=== PATIENT | female | born 1980 | race Caucasian/White ===

== ENCOUNTER 2017-04-05 14:52 | Emergency (ER) | payer OTHER ==
--- NOTE | 2017-04-05 15:05 | PDOC ---
Rapid Medical Evaluation Time Seen by Provider: 04/05/17 14:56 Medical Evaluation: I have performed a brief in-person evaluation of this patient. The patient presents with a chief complaint of: vaginal bleeding 6 weeks with some abd cramping and dysuria x 3 days. LMP 02/02/17. no passage of clots. . Pertinent physical exam findings: none I have ordered the following: UA/culture The patient will proceed to the ED for further evaluation.
[2017-04-05 15:07] VITALS: BP 123/75; PULSE 70; TEMP 98.5; BMI 24.4
[2017-04-05 15:28] LABS: URINE APPEARANCE CLEAR; URINE BILIRUBIN NEGATIVE (NEGATIVE); URINE COLOR STRAW; URINE GLUCOSE (UA) NEGATIVE (NEGATIVE); URINE KETONE NEGATIVE (NEGATIVE); URINE NITRITE NEGATIVE (NEGATIVE); URINE PROTEIN NEGATIVE (NEGATIVE); URINE UROBILINOGEN NEGATIVE E.U./dl (0.2-1.0)
[2017-04-05 15:43] LABS: URINE BLOOD 2+ (NEGATIVE); URINE LEUK ESTERASE TRACE (NEGATIVE)
[2017-04-05 15:52] LABS: URINE RBC 1 /hpf (0-3); URINE WBC 4 /hpf (3-5)
[2017-04-05 16:36] LABS: BASOPHIL 0.4 % (0-2.0); EOSINOPHIL 1.7 % (0-4.5); MCH 29.6 pg (25.7-33.7); MCHC 33.5 g/dl (32.0-36.0); MEAN CELL VOLUME 88.3 fl (80-96); MEAN PLT VOLUME 9.1 fl (7.5-11.1); NEUTROPHILS 59.3 % (42.8-82.8); PLATELET COUNT 252 K/MM3 (134-434); RDW 12.7 % (11.6-15.6); WHITE BLOOD COUNT 8.6 K/mm3 (4.0-10.0)
--- NOTE | 2017-04-05 16:49 | PDOC ---
History of Present Illness - General Chief Complaint: Vaginal Bleeding Stated Complaint: VAGINAL BLEEDING, 6 WKS Time Seen by Provider: 04/05/17 14:56 History Source: Patient Exam Limitations: No Limitations - History of Present Illness Travel History: No Initial Comments: 04/05/17 16:03 37-year-old female presents to the ED with complaints of vaginal bleeding since this morning associated with lower abdominal pain since the onset of . Patient states that she was 2 weeks ago while she was in [facility] vacation visiting her significant other. Patient states had an ultrasound that showed no IUP but states it was probably too early to come back in 2 weeks. Since patient was returning back to [place] she decided to follow-up at [address] [place] [address] repeat a urine which was positive and has her follow-up appointment tomorrow. Patient states this is her first and bleeding has subsided to scant brownish discharge. Patient does complain of mild mid suprapubic cramping without nausea, vomiting, dysuria, back pain, fever or chills. Timing/Duration: reports: changing over time Quality: reports: mild, cramping Abdominal Pain Onset Location: reports: suprapubic Pain Radiation: reports: no radiation Activities at Onset: reports: none Aggravating Factors: improves with: None Alleviating Factors: improves with: None Past History - Travel Traveled outside of the country in the last 30 days: No Close contact w/someone who was outside of country & ill: No - Past Medical History Allergies/Adverse Reactions: Allergies Allergy/AdvReac Type Severity Reaction Status Date / Time No Known Allergies Allergy Verified 04/05/17 15:02 Home Medications: Ambulatory Orders Loratadine 10 mg PO DAILY 04/05/17 Other medical history: dENIES - Immunization History Immunization Up to Date: Yes - Psycho/Social/Smoking Cessation Hx Suicidal Ideation: No Smoking History: Never smoked Information on smoking cessation initiated: No Hx Alcohol Use: No Drug/Substance Use Hx: No Patient Lives Alone: No Review of Systems - Review of Systems Able to Perform ROS?: Yes Constitutional: No: Symptoms Reported HEENTM: No: Symptoms Reported Respiratory: No: Symptoms reported Cardiac (ROS): No: Symptoms Reported ABD/GI: Yes: Abdominal cramping : Yes: Discharge (vaginal) Musculoskeletal: No: Symptoms Reported Integumentary: No: Symptoms Reported Endocrine: No: Symptoms Reported Hematologic/Lymphatic: No: Symptoms Reported *Physical Exam - Vital Signs Last Vital Signs Temp Pulse Resp BP Pulse Ox 98.5 F 70 15 123/75 100 04/05/17 15:03 04/05/17 15:03 04/05/17 15:03 04/05/17 15:03 04/05/17 15:03 - Physical Exam General Appearance: Yes: Nourished, Appropriately Dressed. No: Apparent Distress HEENT: negative: Pale Conjunctivae Neck: positive: Normal Thyroid, Supple Respiratory/Chest: positive: Lungs Clear, Normal Breath Sounds. negative: Respiratory Distress Cardiovascular: positive: Regular Rhythm, Regular Rate. negative: Murmur Female Pelvic Exam: positive: cervical os closed, vaginal bleeding (scant brownish josé). negative: CMT, adnexal tenderness Gastrointestinal/Abdominal: positive: Soft, Tenderness (mid suprapubic) Musculoskeletal: negative: CVA Tenderness Extremity: negative: Normal Capillary Refill Integumentary: positive: Normal Color, Warm, Moist Neurologic: positive: Normal Mood/Affect, Motor Strength 03/04 ED Treatment Course - LABORATORY CBC & Chemistry Diagram: 04/05/17 16:30 04/05/17 16:30 - ADDITIONAL ORDERS Additional order review: Laboratory Results 04/05/17 15:05 Urine Color Straw Urine Appearance Clear Urine pH 7.0 Urine Protein Negative Urine Glucose (UA) Negative Urine Ketones Negative Urine Blood 2+ H Urine Nitrite Negative Urine Bilirubin Negative Urine Urobilinogen Negative Ur Leukocyte Esterase Trace H - RADIOLOGY Radiology Studies Ordered: Category Date Time Status TRANSVAGINAL US PREG [US] Stat Ultrasound 04/05/17 16:15 Ordered Medical Decision Making - Medical Decision Making 04/05/17 15:56 Patient currently 6 weeks presenting with vaginal bleeding since this morning. Patient states had an ultrasound done 2 weeks ago and L5 but with no IUP but likely too early based on her LMP. 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 Patient on exam had mild suprapubic tenderness along with brownish vaginal discharge. Patient ordered for the urine, beta Quant, CBC, comp and ultrasound. 04/05/17 17:46 Laboratory Tests 04/05/17 04/05/17 04/05/17 15:05 16:30 16:30 WBC 8.6 Hgb 13.7 Hct 40.8 Neutrophils % 59.3 Sodium 139 Potassium 4.2 Chloride 104 Carbon Dioxide 25 Anion Gap 10 BUN 9 Creatinine 0.5 L Random Glucose 90 AST 20 ALT 29 Beta HCG, Quant 6760.8 Urine Blood 2+ H Ur Leukocyte Esterase Trace H Urine WBC 4 Urine culture was sent. *DC/Admit/Observation/Transfer Diagnosis at time of Disposition: demise - Discharge Dispostion Disposition: HOME Condition at time of disposition: Stable - Referrals Referrals: Kirk Ricardo MD [Staff Physician] - - Patient Instructions Printed Discharge Instructions: DI for Threatened
[2017-04-05 17:02] LABS: ALBUMIN 3.8 g/dl (3.4-5.0); ANION GAP 10 (8-16); BILIRUBIN,TOTAL 0.2 mg/dL (0.2-1.0); CALCIUM 9.3 mg/dL (8.5-10.1); CO2 25 mmol/L (21-32); COCKROFT - GAULT 165.2995; CREATININE 0.5 mg/dL (0.55-1.02); GLUCOSE,RANDOM 90 mg/dL (74-106); SGOT/AST 20 U/L (15-37); SGPT/ALT 29 U/L (12-78); TOT PROT 7.2 g/dl (6.4-8.2)
[2017-04-05 17:17] LABS: ALK PHOS 64 U/L (45-117)
--- NOTE | 2017-04-05 19:55 | PDOC ---
*Physical Exam - Vital Signs Last Vital Signs Temp Pulse Resp BP Pulse Ox 98.5 F 70 15 123/75 100 04/05/17 15:03 04/05/17 15:03 04/05/17 15:03 04/05/17 15:03 04/05/17 15:03 - Physical Exam Comments: 04/05/17 19:50 37-year-old female presents to the emergency department complaining of lower abdominal pain since earlier this morning with lower abdominal discomfort. No IUP was noted on an ultrasound she had done 2 weeks ago. She was informed to follow-up in 2 weeks due to possible early gestation. Patient denies nausea/ vomiting, fever/chills, urinary symptoms, back pains. ED Treatment Course - LABORATORY CBC & Chemistry Diagram: 04/05/17 16:30 04/05/17 16:30 - ADDITIONAL ORDERS Additional order review: Laboratory Results 04/05/17 04/05/17 16:30 15:05 Sodium 139 Potassium 4.2 Chloride 104 Carbon Dioxide 25 Anion Gap 10 BUN 9 Creatinine 0.5 L Creat Clearance w eGFR > 60 Random Glucose 90 Calcium 9.3 Total Bilirubin 0.2 AST 20 ALT 29 Alkaline Phosphatase 64 Total Protein 7.2 Albumin 3.8 Beta HCG, Quant 6760.8 Urine Color Straw Urine Appearance Clear Urine pH 7.0 Urine Protein Negative Urine Glucose (UA) Negative Urine Ketones Negative Urine Blood 2+ H Urine Nitrite Negative Urine Bilirubin Negative Urine Urobilinogen Negative Ur Leukocyte Esterase Trace H Urine RBC 1 Urine WBC 4 Ur Epithelial Cells Rare 04/05/17 16:30 RBC 4.62 MCV 88.3 MCHC 33.5 RDW 12.7 MPV 9.1 Neutrophils % 59.3 Lymphocytes % 31.1 Monocytes % 7.5 Eosinophils % 1.7 Basophils % 0.4 Progress Note - Progress Note Progress Note: Patient had a transvaginal ultrasound test done in the emergency department today. Preliminary ultrasound report shows a single intrauterine with estimated sonography gestational age of 6 weeks and 2 days based on the crown-rump length. No heart activity could be documented suggestive of demise. Correlation with serial quantitative serum beta hCG and follow-up ultrasound is recommended. *DC/Admit/Observation/Transfer Diagnosis at time of Disposition: - Discharge Dispostion Condition at time of disposition: Stable Admit: No - Referrals Referrals: Kirk Ricardo MD [Staff Physician] - - Patient Instructions Printed Discharge Instructions: DI for Threatened
== END 2017-04-05 21:58 | disposition home or self-care (01) ==
LOC: JER 14:52
DX: O02.1 Missed abortion (principal); Z3A.01 Less than 8 weeks gestation of pregnancy
CPT/HCPCS: 36415; 76817-TC; 80053; 81003; 81015; 84702; 85025; 86850; 86900; 86901; 99282-25

== ENCOUNTER 2019-08-12 03:46 | Inpatient (IN) | payer OTHER ==
[2019-08-12] MEDS ORDERED: ACETAMINOPHEN 1000 MG/100 ML VIAL (NON FORMULARY) IVPB ONE (05:29)
[2019-08-12] MEDS ORDERED: SODIUM CHLORIDE 1,000 ML IV STA (05:29)
[2019-08-12] MEDS ORDERED: ACETAMINOPHEN INJECTION 100 ML IVPB ONE (06:16)
--- NOTE | 2019-08-12 06:27 | PDOC ---
Attending Attestation - Resident Resident Name: Robb Covington - ED Attending Attestation I have performed the following: I have examined & evaluated the patient, The case was reviewed & discussed with the resident, I agree w/resident's findings & plan, Exceptions are as noted - HPI HPI: 08/12/19 06:24 39 F with no PMH presents to ED with 2 weeks of flank pain. Pt states that the pain began in her R flank. It was accompanied by dysuria and urinary frequency. Pt was diagnosed with a UTI and started on Macrobid, which she completed. Pt states the pain resolved initially but returned after a few days. Pt was subsequently started on Bactrim, which she has been taking for 2 days. Tonight, pt states that she began to develop L flank pain. Pt also endorses 2 episodes of vomiting. Denies any diarrhea. Had fevers last week but denies any recent F/ C. - Physicial Exam PE: 08/12/19 06:26 "GENERAL: Awake, alert, and fully oriented, in no acute distress. HEAD: No signs of trauma EYES: PERRLA, EOMI, sclera anicteric, conjunctiva clear ENT: Auricles normal inspection, hearing grossly normal, nares patent, oropharynx clear without exudates. Moist mucosa NECK: Nontender, no stepoffs, Normal ROM, supple, no lymphadenopathy, JVD, or masses LUNGS: Breath sounds equal, clear to auscultation bilaterally. No wheezes, and no crackles HEART: Regular rate and rhythm, normal S1 and S2, no murmurs, rubs or gallops ABDOMEN: + RLQ TTP, + L CVAT, normoactive bowel sounds. No guarding, no rebound. No masses EXTREMITIES: Normal range of motion, no edema. No clubbing or cyanosis. No cords, erythema, or tenderness NEUROLOGICAL: Cranial nerves II through XII intact. 5/5 strength and sensation in all extremities, Normal speech, normal gait, normal cerebellar function SKIN: Warm, Dry, normal turgor, no rashes or lesions noted. - Medical Decision Making 08/12/19 06:26 39 F with migrating flank pain x 2 weeks, with dysuria and frequency. Suspect pyelonephritis. Also consider nephrolithiasis. On exam, pt with L CVAT, as well as RLQ TTP. Will r/o appendicitis. - Labs, UA, UCx - CTAP - IVF, tylenol
[2019-08-12 06:31] LABS: BASO % 0.4 % (0-2.0); EOS % 0.3 % (0-4.5); HEMATOCRIT 40.5 % (32.4-45.2); HEMOGLOBIN 13.2 GM/dL (10.7-15.3); LYMPH % 9.5 % (8-40); MCH 29.4 pg (25.7-33.7); MCHC 32.7 g/dl (32.0-36.0); MEAN CELL VOLUME 89.8 fl (80-96); MEAN PLT VOLUME 10.4 fl (7.5-11.1); MONO % 4.4 % (3.8-10.2); NEUT % 85.4 % (42.8-82.8); PLATELET COUNT 244 K/MM3 (134-434); RBC 4.51 M/mm3 (3.60-5.2); RDW 12.7 % (11.6-15.6); WHITE BLOOD COUNT 14.9 K/mm3 (4.0-10.0)
[2019-08-12 07:00] LABS: BILIRUBIN,TOTAL 0.3 mg/dL (0.2-1); CALCIUM 9.5 mg/dL (8.5-10.1); CREATININE 0.7 mg/dL (0.55-1.3); POTASSIUM 4.5 mmol/L (3.5-5.1); TOT PROT 7.5 g/dl (6.4-8.2)
--- NOTE | 2019-08-12 07:21 | PDOC ---
*Physical Exam - Vital Signs Last Vital Signs Temp Pulse Resp BP Pulse Ox 98.3 F 84 18 125/78 99 08/12/19 04:43 08/12/19 04:43 08/12/19 04:43 08/12/19 04:43 08/12/19 04:43 - Physical Exam General Appearance: Yes: Nourished, Appropriately Dressed. No: Apparent Distress HEENT: positive: EOMI, OPAL, Pharynx Normal, Hearing Grossly Normal. negative: Scleral Icterus (R), Scleral Icterus (L) Neck: positive: Trachea midline, Normal Thyroid, Supple. negative: Lymphadenopathy (R), Lymphadenopathy (L) Respiratory/Chest: positive: Lungs Clear, Normal Breath Sounds. negative: Respiratory Distress, Accessory Muscle Use, Crackles, Rales, Rhonchi Cardiovascular: positive: Regular Rhythm, Regular Rate Vascular Pulses: Dorsalis-Pedis (R): 2+, Doralis-Pedis (L): 2+ Gastrointestinal/Abdominal: positive: Normal Bowel Sounds, Tender ( periumbilical tenderness), Flat, Soft. negative: Organomegaly, Pulsatile Mass, Guarding, Rebound Musculoskeletal: positive: Normal Inspection, CVA Tenderness (R>L). negative: Decreased Range of Motion Extremity: positive: Normal Capillary Refill, Normal Inspection, Normal Range of Motion. negative: Tender Integumentary: positive: Normal Color, Dry, Warm Neurologic: positive: Fully Oriented, Alert, Normal Mood/Affect, Normal Response ED Treatment Course - LABORATORY CBC & Chemistry Diagram: 08/12/19 05:56 08/12/19 05:56 - ADDITIONAL ORDERS Additional order review: Laboratory Results 08/12/19 08/12/19 05:56 05:56 Sodium 139 Potassium 4.5 Chloride 106 Carbon Dioxide 25 Anion Gap 7 L BUN 10.0 Creatinine 0.7 Est GFR (CKD-EPI)AfAm 128.28 Est GFR (CKD-EPI)NonAf 110.69 Random Glucose 114 H Calcium 9.5 Total Bilirubin 0.3 AST 18 ALT 23 Alkaline Phosphatase 84 Total Protein 7.5 Albumin 4.0 Lipase Cancelled 128 08/12/19 05:56 RBC 4.51 MCV 89.8 MCHC 32.7 RDW 12.7 MPV 10.4 D Neutrophils % 85.4 H D Lymphocytes % 9.5 D Monocytes % 4.4 Eosinophils % 0.3 D Basophils % 0.4 - Medications Given in the ED: ED Medications Discontinued Medications Generic Name Dose Route Start Last Admin Trade Name Heide PRN Reason Stop Dose Admin Acetaminophen 1,000 mg 08/12/19 05:29 08/12/19 06:22 Ofirmev Injection - IVPB 08/12/19 05:30 1,000 mg ONCE ONE Administration Sodium Chloride 1,000 mls @ 1,000 mls/hr 08/12/19 05:29 08/12/19 06:22 Normal Saline - IV 08/12/19 06:28 1,000 mls/hr ASDIR STA Administration Medical Decision Making - Medical Decision Making 08/12/19 07:20 Signed out to me by Dr. Covington. 39F presenting with L flank pain radiating to L groin, which began as R flank pain radiating to R groin Treated as UTI/w bleeding outpatient on Abx, but coming in with persistent pain and likely outpatient treatment failure for UTI Waiting read of CT abd/pelvis with contrast for evaluation of pyelo Labs notable for WBC 14.9. Pending UA results. 08/12/19 07:39 UA shows 2+ blood, 700 bacteria, +3 LE consistent with UTI/pyelo Pending beta hCG. 08/12/19 09:14 Upreg negative. 08/12/19 10:20 Patient evaluated at bedside, was having abdominal pain with urinary frequency and urgency and found to have UTI, started on outpatient Abx with outside PMD Leah Perdomo at [facility]. Has taken 1 week pyridine and 1 week Macrobid outpatient, still has persistent abdominal and flank pain Now with R-sided flank pain and nausea/vomiting with persistent UTI and WBC 15, afebrile and VS stable. Giving 1g ceftriaxone. CT scan pending read. Given presentation, patient requires admission for IV administration of antibiotic therapy for acute pyelonephritis, has failed outpatient management and is unable to tolerate PO medications. 08/12/19 10:45 CT reads no acute pathology, prominent cervix which may need follow-up Pap smear , possible posterior sacroilitis. Patient still requires inpatient admission for parenteral antibiotics. Called Dr. Welsh with hospitalist service but patient follows at [facility], admits to Dr. Juárez. Dr. Juárez paged overhead. 08/12/19 11:20 Discussed admission to Med-Surg with Dr. Juárez. Discharge - Discharge Information Problems reviewed: Yes Clinical Impression/Diagnosis: Acute pyelonephritis Condition: Stable - Admission Yes - Follow up/Referral - Patient Discharge Instructions - Post Discharge Activity
[2019-08-12 07:38] LABS: EPI CELLS 0.7 /HPF (0-5/HPF); HYALINE CASTS 4 /lpf (0-8); URINE APPEARANCE CLEAR; URINE BACTERIA 719.2 /hpf (NEGATIVE); URINE BILIRUBIN NEGATIVE (NEGATIVE); URINE COLOR YELLOW; URINE GLUCOSE (UA) NEGATIVE (NEGATIVE); URINE KETONE NEGATIVE (NEGATIVE); URINE LEUK ESTERASE 3+ (NEGATIVE); URINE NITRITE NEGATIVE (NEGATIVE); URINE PROTEIN TRACE (NEGATIVE); URINE RBC 2 /hpf (0-4); URINE UROBILINOGEN 0.2 mg/dL (0.2-1.0); URINE WBC 117 /hpf (0-5)
[2019-08-12] MEDS ORDERED: CEFTRIAXONE 1,000 MG in DEXTROSE 5%-WATER - 50 ML IVPB ONE (08:20)
[2019-08-12 08:29] LABS: HCG,QUALITATIVE URINE Negative
--- NOTE | 2019-08-12 10:23 | PDOC ---
*Physical Exam - Vital Signs Last Vital Signs Temp Pulse Resp BP Pulse Ox 98.3 F 84 18 125/78 99 08/12/19 04:43 08/12/19 04:43 08/12/19 04:43 08/12/19 04:43 08/12/19 04:43 - Physical Exam General Appearance: Yes: Nourished Neck: positive: Trachea midline Respiratory/Chest: positive: Lungs Clear, Normal Breath Sounds Cardiovascular: positive: Regular Rhythm, Regular Rate, S1, S2 Gastrointestinal/Abdominal: positive: Normal Bowel Sounds, Tender (suprapubic ttp. right CVA ttp. ), Flat, Soft Musculoskeletal: positive: Normal Inspection Extremity: positive: Normal Capillary Refill Integumentary: positive: Normal Color, Dry, Warm ED Treatment Course - LABORATORY CBC & Chemistry Diagram: 08/12/19 05:56 08/12/19 05:56 - ADDITIONAL ORDERS Additional order review: Laboratory Results 08/12/19 08/12/19 08/12/19 06:19 05:56 05:56 Sodium 139 Potassium 4.5 Chloride 106 Carbon Dioxide 25 Anion Gap 7 L BUN 10.0 Creatinine 0.7 Est GFR (CKD-EPI)AfAm 128.28 Est GFR (CKD-EPI)NonAf 110.69 Random Glucose 114 H Calcium 9.5 Total Bilirubin 0.3 AST 18 ALT 23 Alkaline Phosphatase 84 Total Protein 7.5 Albumin 4.0 Lipase Cancelled 128 Urine Color Yellow Urine Appearance Clear Urine pH 6.0 Ur Specific [place] 1.005 L Urine Protein Trace Urine Glucose (UA) Negative Urine Ketones Negative Urine Blood 2+ H Urine Nitrite Negative Urine Bilirubin Negative Urine Urobilinogen 0.2 Ur Leukocyte Esterase 3+ H Urine WBC (Auto) 117 Urine RBC (Auto) 2 Urine Casts (Auto) 4 U Epithel Cells (Auto) 0.7 Urine Bacteria (Auto) 719.2 Urine HCG, Qual Negative 08/12/19 05:56 RBC 4.51 MCV 89.8 MCHC 32.7 RDW 12.7 MPV 10.4 D Neutrophils % 85.4 H D Lymphocytes % 9.5 D Monocytes % 4.4 Eosinophils % 0.3 D Basophils % 0.4 - Medications Given in the ED: ED Medications Discontinued Medications Generic Name Dose Route Start Last Admin Trade Name Freq PRN Reason Stop Dose Admin Acetaminophen 1,000 mg 08/12/19 05:29 08/12/19 06:22 Ofirmev Injection - IVPB 08/12/19 05:30 1,000 mg ONCE ONE Administration Sodium Chloride 1,000 mls @ 1,000 mls/hr 08/12/19 05:29 08/12/19 06:22 Normal Saline - IV 08/12/19 06:28 1,000 mls/hr ASDIR STA Administration Medical Decision Making - Medical Decision Making 08/12/19 10:21 39-year-old female history of recent UTI was started on Macrobid 2 weeks ago which she completed 1 week ago. 2 days prior she started having recurrent symptoms of dysuria urgency and pain after urination she was having subjective fevers and chills she did see a doctor on Tuesday was given an antibiotic however on the evening prior patient started having worsening pain including left flank pain which is now migrated to the right side flank pain nausea and vomiting. Physical exam patient has suprapubic tenderness and right-sided CVA tenderness. Reviewed the patient's work-up thus far demonstrates a white count of 14 she was afebrile here however does have a persistent UTI was given Zofran for her vomiting. Due to the fact the patient has failed outpatient management of her UTI and is having vomiting she will be admitted for pyelonephritis her primary doctor is Dr. Perdomo at [facility]. Discharge - Discharge Information Problems reviewed: Yes Clinical Impression/Diagnosis: Acute pyelonephritis Condition: Stable - Follow up/Referral Referrals: ON STAFF,NOT [Primary Care Provider] - - Patient Discharge Instructions - Post Discharge Activity
[2019-08-12] MEDS ORDERED: CEFTRIAXONE 1 GM/50 ML BAG ONE (11:20)
--- NOTE | 2019-08-12 12:35 | HP ---
Admitting History and Physical - Primary Care Physician PCP: Malinda Juárez - Admission Chief Complaint: CVA TENDERNESS/PUBIC PAIN WITH DYSUREA History of Present Illness: 39-year-old female history of recent UTI was started on Macrobid 2 weeks ago which she completed 1 week ago. 2 days prior she started having recurrent symptoms of dysuria urgency and pain after urination she was having subjective fevers and chills she did see a doctor on Tuesday was given an antibiotic however on the evening prior patient started having worsening pain including left flank pain which is now migrated to the right side flank pain nausea and vomiting. Physical exam patient has suprapubic tenderness and right-sided CVA tenderness. History Source: Patient, Medical Record - Past Medical History Renal/: Yes: Other - Smoking History Smoking history: Never smoked - Alcohol/Substance Use Hx Alcohol Use: No Home Medications - Allergies Allergies/Adverse Reactions: Allergies Allergy/AdvReac Type Severity Reaction Status Date / Time No Known Allergies Allergy Verified 08/12/19 04:48 - Home Medications Home Medications: Ambulatory Orders Loratadine 10 mg PO DAILY 04/05/17 Review of Systems - Review of Systems Constitutional: reports: Fever, Lethargy, Night Sweats, Weakness Eyes: reports: No Symptoms HENT: reports: No Symptoms Neck: reports: No Symptoms Cardiovascular: reports: No Symptoms Respiratory: reports: No Symptoms Gastrointestinal: reports: Abdominal Pain Genitourinary: reports: Dysuria, Flank Pain Musculoskeletal: reports: Back Pain Neurological: reports: No Symptoms Endocrine: reports: No Symptoms Physical Examination Vital Signs: Vital Signs Temperature 98.3 F 08/12/19 04:43 Pulse Rate 84 08/12/19 04:43 Respiratory Rate 18 08/12/19 04:43 Blood Pressure 125/78 08/12/19 04:43 O2 Sat by Pulse Oximetry (%) 99 08/12/19 04:43 Constitutional: Yes: Mild Distress Cardiovascular: Yes: Regular Rate and Rhythm Respiratory: Yes: WNL Gastrointestinal: Yes: WNL Renal/: Yes: CVA Tenderness - Left, CVA Tenderness - Right Musculoskeletal: Yes: WNL Extremities: Yes: WNL Peripheral Pulses WNL: Yes Integumentary: Yes: WNL Wound/Incision: Yes: Clean/Dry Neurological: Yes: WNL Labs: CBC, BMP 08/12/19 05:56 08/12/19 05:56 Imaging - Results Cat Scan: Report Reviewed Problem List - Problems (1) Acute pyelonephritis Code(s): N10 - ACUTE PYELONEPHRITIS Assessment/Plan CHECK CULTURES ID CONSULT IV CEFTRIAXONE DVT PROPHYLAXIS FAILED ON OUTPATIENT PO ABX
[2019-08-12 18:16] VITALS: BMI 26.6
[2019-08-12] MEDS ORDERED: FLU VACCINE QUAD 60 MCG/0.5 ML (MDV 19-20) IM ONE (18:16)
[2019-08-12] MEDS: ACETAMINOPHEN 325 MG TABLET (FP) PO PRN (21:36)
[2019-08-12] MEDS: HEPARIN NA (PORCINE) 5,000 UNITS/ML 1ML VIAL SQ SCH (21:38)
[2019-08-13 08:31] LABS: HEMATOCRIT 36.4 % (32.4-45.2); HEMOGLOBIN 12.4 GM/dL (10.7-15.3); MCHC 33.9 g/dl (32.0-36.0); MEAN CELL VOLUME 88.5 fl (80-96); MEAN PLT VOLUME 9.9 fl (7.5-11.1); PLATELET COUNT 227 K/MM3 (134-434); RBC 4.11 M/mm3 (3.60-5.2); RDW 12.7 % (11.6-15.6)
[2019-08-13 08:54] LABS: ALBUMIN 3.4 g/dl (3.4-5.0); BILIRUBIN,TOTAL 0.4 mg/dL (0.2-1); BLOOD UREA NITROGEN 8.9 mg/dL (7-18); CREATININE 0.6 mg/dL (0.55-1.3); TOT PROT 6.5 g/dl (6.4-8.2)
[2019-08-13] MEDS ORDERED: PT OWN MED DRAWER 7, Y5N ONE (09:14)
[2019-08-13] MEDS: HEPARIN NA (PORCINE) 5,000 UNITS/ML 1ML VIAL SQ SCH ×2 (09:27→21:38)
[2019-08-13] MEDS: ACETAMINOPHEN 325 MG TABLET (FP) PO PRN ×3 (09:27→20:13)
[2019-08-13] MEDS ORDERED: CEFTRIAXONE 1 GM in DEXTROSE 5%-WATER - 50 ML IVPB SCH (10:00)
[2019-08-13] MEDS ORDERED: cefTRIAXone SODIUM 1 GM VIAL ONE (10:52)
[2019-08-13] MEDS ORDERED: DEXTROSE 5%-WATER - 50 ML IVPB ONE (10:52)
[2019-08-13] MEDS ORDERED: FLU VACCINE QUAD 60 MCG/0.5 ML (MDV 19-20) IM ONE (11:00)
--- NOTE | 2019-08-13 11:46 | PN ---
Progress Note, Physician Chief Complaint: Pyelonephritis UTI History of Present Illness: Previous notes and events reviewed awake and alert NAD complain of dysuria and hematuria no leukocytosis afebrile complain of R sided abdominal pain - Current Medication List Current Medications: Active Medications Acetaminophen (Tylenol -) 650 mg PO Q6H PRN PRN Reason: PAIN LEVEL 1-5 Last Admin: 08/13/19 09:27 Dose: 650 mg Heparin Sodium (Porcine) (Heparin -) 5,000 unit SQ BID APPLE Last Admin: 08/13/19 09:27 Dose: 5,000 unit Ceftriaxone Sodium 1 gm/ (Dextrose) 50 mls @ 100 mls/hr IVPB DAILY [facility]; Protocol Last Admin: 08/13/19 10:55 Dose: 100 mls/hr Influenza Virus Vaccine Quadrival (Flulaval Quad ) 60 mcg IM .ONCE ONE Stop: 08/13/19 11:01 - Objective Vital Signs: Vital Signs Temperature 97.9 F 08/13/19 06:00 Pulse Rate 69 08/13/19 06:00 Respiratory Rate 18 08/13/19 06:00 Blood Pressure 113/67 08/13/19 06:00 O2 Sat by Pulse Oximetry (%) 98 08/13/19 09:00 Constitutional: Yes: No Distress, Calm Eyes: Yes: Conjunctiva Clear HENT: Yes: Atraumatic Cardiovascular: Yes: Regular Rate and Rhythm Respiratory: Yes: Regular, CTA Bilaterally Gastrointestinal: Yes: Normal Bowel Sounds, Soft, Tenderness (R side) Musculoskeletal: Yes: WNL Extremities: Yes: WNL Edema: No Neurological: Yes: Alert, Oriented Psychiatric: Yes: Alert, Oriented Labs: CBC, BMP 08/13/19 07:36 08/13/19 07:36 Microbiology 08/12/19 06:19 Urine - Urine Clean Catch Urine Culture - Preliminary Lactose Fermenting Neg Bacilli Problem List - Problems (1) Acute pyelonephritis Assessment/Plan: -ID on board -Ceftriaxone -no leukocytosis -afebrile -UA shows 3+ leuks, 2+ blood -UC prelim positive -BC pending Code(s): N10 - ACUTE PYELONEPHRITIS Assessment/Plan see problem llist dvt ppx
--- NOTE | 2019-08-13 13:23 | PN ---
Progress Note (short form) - Note Progress Note: ID CONSULT DICTATED UTI R/O PYELO AWAIT C/S CONTINUE CEFTRIAXONE
--- NOTE | 2019-08-13 14:05 | CONS ---
DATE OF CONSULTATION: DATE OF DICTATION: 08/13/2019 INFECTIOUS DISEASE CONSULTATION HISTORY OF PRESENT ILLNESS: The patient is a 39-year-old female who is evaluated for urinary tract infection, possible pyelonephritis. She was admitted to the hospital on August 12, 2019, with flank pain. Patient states she has not been feeling well for the past 2 weeks. She first developed right flank pain with radiation to the groin associated with dysuria, frequency, and gross hematuria. She was seen as an outpatient and was prescribed Macrobid and later Bactrim. Despite the antibiotics, she had developed worsening flank pain, and she subsequently developed left flank pain with radiation to the groin. She also has reported associated nausea and vomiting and subjective fever. She was evaluated in the emergency room where she was noted to have an elevated white blood cell count of 14,000 and a urinalysis which showed pyuria. 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 A CAT scan of the abdomen and pelvis was performed, showed no acute pathology. No indirect evident of appendicitis was noted. Urine culture was obtained. She was empirically treated with ceftriaxone. Presently she reports improvement in her flank pain, dysuria and frequency. She denies any recurrent hematuria. PAST MEDICAL HISTORY: Negative. ALLERGIES: No known allergies. MEDICATION: Include Tylenol, ceftriaxone. SOCIAL HISTORY: She resides at home with her . She is nonsmoker, nondrinker. SYSTEMS REVIEW: Neurologic: No loss of consciousness, seizure activity, or focal weakness. Cardiac: Negative for chest pain or palpitations. Respiratory: Negative for cough or sputum production. Gastrointestinal: Negative vomiting or diarrhea. Genitourinary: As per HPI. 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 PHYSICAL EXAMINATION: General: On exam, she is awake and alert, supine in bed, she is in no acute distress. Vital signs: Temperature 97.9, blood pressure 113/67, pulse 69 regular, respirations 18 per minute. HEENT: Sclerae anicteric. Cardiovascular: Heart sounds S1, S2. Lungs: Clear. Abdomen: Soft. There is some mild right paraumbilical tenderness to palpation. No CVA tenderness. Extremities: Negative for edema. IMPRESSION: 1. Urinary tract infection. 2. Flank pain, rule out pyelonephritis. 3. Leukocytosis, rule out sepsis secondary to urinary tract focus. 4. Await culture results. Continue empiric ceftriaxone. Intravenous fluid hydration . Thank you for the kind referral. MARY BOYD M.D. [id number]
[2019-08-14 08:03] LABS: HEMATOCRIT 38.9 % (32.4-45.2); MCH 30.2 pg (25.7-33.7); MCHC 33.5 g/dl (32.0-36.0); MEAN CELL VOLUME 90.1 fl (80-96); MEAN PLT VOLUME 10.1 fl (7.5-11.1); PLATELET COUNT 239 K/MM3 (134-434); RBC 4.31 M/mm3 (3.60-5.2); RDW 12.9 % (11.6-15.6); WHITE BLOOD COUNT 6.7 K/mm3 (4.0-10.0)
[2019-08-14 08:23] LABS: ALBUMIN 3.6 g/dl (3.4-5.0); BILIRUBIN,TOTAL 0.3 mg/dL (0.2-1); BLOOD UREA NITROGEN 10.6 mg/dL (7-18); CREATININE 0.6 mg/dL (0.55-1.3)
[2019-08-14] MEDS ORDERED: DEXTROSE 5%-WATER 100 ML IVPB ONE (09:28)
[2019-08-14] MEDS: HEPARIN NA (PORCINE) 5,000 UNITS/ML 1ML VIAL SQ SCH (09:34)
[2019-08-14] MEDS: ACETAMINOPHEN 325 MG TABLET (FP) PO PRN ×2 (09:35→13:09)
[2019-08-14] MEDS ORDERED: CEFTRIAXONE 2 GM in DEXTROSE 5%-WATER 100 ML IVPB SCH (10:00)
[2019-08-14] MEDS ORDERED: IBUPROFEN 600 MG TABLET (FP) PO PRN (13:28)
[2019-08-14 13:55] VITALS: BP 112/66; PULSE 59; TEMP 98
--- NOTE | 2019-08-14 14:10 | DS ---
Physical Examination Vital Signs: Vital Signs Temperature 98.0 F 08/14/19 13:54 Pulse Rate 59 L 08/14/19 13:54 Respiratory Rate 18 08/14/19 05:38 Blood Pressure 112/66 08/14/19 13:54 O2 Sat by Pulse Oximetry (%) 98 08/13/19 21:00 Findings/Remarks: Laboratory Tests 08/12/19 08/12/19 08/12/19 05:56 05:56 05:56 WBC 14.9 H RBC 4.51 Hgb 13.2 Hct 40.5 MCV 89.8 MCH 29.4 MCHC 32.7 RDW 12.7 Plt Count 244 MPV 10.4 D Absolute Neuts (auto) 12.7 H Neutrophils % 85.4 H D Lymphocytes % 9.5 D Monocytes % 4.4 Eosinophils % 0.3 D Basophils % 0.4 Nucleated RBC % 0 Sodium 139 Potassium 4.5 Chloride 106 Carbon Dioxide 25 Anion Gap 7 L BUN 10.0 Creatinine 0.7 Est GFR (CKD-EPI)AfAm 128.28 Est GFR (CKD-EPI)NonAf 110.69 Random Glucose 114 H Calcium 9.5 Total Bilirubin 0.3 AST 18 ALT 23 Alkaline Phosphatase 84 Total Protein 7.5 Albumin 4.0 Lipase 128 Cancelled Urine Color Urine Appearance Urine pH Ur Specific Sparkman Urine Protein Urine Glucose (UA) Urine Ketones Urine Blood Urine Nitrite Urine Bilirubin Urine Urobilinogen Ur Leukocyte Esterase Urine WBC (Auto) Urine RBC (Auto) Urine Casts (Auto) U Epithel Cells (Auto) Urine Bacteria (Auto) Urine HCG, Qual 08/12/19 08/13/19 08/13/19 06:19 07:36 07:36 WBC 5.0 RBC 4.11 Hgb 12.4 Hct 36.4 MCV 88.5 MCH 30.0 MCHC 33.9 RDW 12.7 Plt Count 227 MPV 9.9 Absolute Neuts (auto) Neutrophils % Lymphocytes % Monocytes % Eosinophils % Basophils % Nucleated RBC % Sodium 139 Potassium 4.0 Chloride 109 H Carbon Dioxide 24 Anion Gap 6 L BUN 8.9 Creatinine 0.6 Est GFR (CKD-EPI)AfAm 134.96 Est GFR (CKD-EPI)NonAf 116.44 Random Glucose 104 Calcium 9.0 Total Bilirubin 0.4 AST 10 L ALT 18 Alkaline Phosphatase 71 Total Protein 6.5 Albumin 3.4 Lipase Urine Color Yellow Urine Appearance Clear Urine pH 6.0 Ur Specific Sparkman 1.005 L Urine Protein Trace Urine Glucose (UA) Negative Urine Ketones Negative Urine Blood 2+ H Urine Nitrite Negative Urine Bilirubin Negative Urine Urobilinogen 0.2 Ur Leukocyte Esterase 3+ H Urine WBC (Auto) 117 Urine RBC (Auto) 2 Urine Casts (Auto) 4 U Epithel Cells (Auto) 0.7 Urine Bacteria (Auto) 719.2 Urine HCG, Qual Negative 08/14/19 08/14/19 07:00 07:00 WBC 6.7 RBC 4.31 Hgb 13.0 Hct 38.9 MCV 90.1 MCH 30.2 MCHC 33.5 RDW 12.9 Plt Count 239 MPV 10.1 Absolute Neuts (auto) Neutrophils % Lymphocytes % Monocytes % Eosinophils % Basophils % Nucleated RBC % Sodium 139 Potassium 5.0 Chloride 107 Carbon Dioxide 29 Anion Gap 4 L BUN 10.6 Creatinine 0.6 Est GFR (CKD-EPI)AfAm 134.96 Est GFR (CKD-EPI)NonAf 116.44 Random Glucose 101 Calcium 9.0 Total Bilirubin 0.3 AST 10 L ALT 18 Alkaline Phosphatase 71 Total Protein 7.0 Albumin 3.6 Lipase Urine Color Urine Appearance Urine pH Ur Specific Sparkman Urine Protein Urine Glucose (UA) Urine Ketones Urine Blood Urine Nitrite Urine Bilirubin Urine Urobilinogen Ur Leukocyte Esterase Urine WBC (Auto) Urine RBC (Auto) Urine Casts (Auto) U Epithel Cells (Auto) Urine Bacteria (Auto) Urine HCG, Qual Active Medications Generic Name Dose Route Start Last Admin Trade Name Freq PRN Reason Stop Dose Admin Acetaminophen 650 mg 08/13/19 19:00 08/14/19 13:09 Tylenol - PO 650 mg Q4H PRN Administration PAIN LEVEL 1-3 Heparin Sodium (Porcine) 5,000 unit 08/12/19 22:00 08/14/19 09:34 Heparin - SQ 5,000 unit BID APPLE Administration Ceftriaxone Sodium 2 gm/ 100 mls @ 200 mls/hr 08/14/19 10:00 08/14/19 09:34 Dextrose IVPB 200 mls/hr DAILY APPLE Administration Protocol Ibuprofen 600 mg 08/14/19 13:28 Motrin - PO Q6H PRN PAIN LEVEL 4 - 6 Microbiology 08/12/19 06:19 Urine - Urine Clean Catch Urine Culture - Final Escherichia Coli Constitutional: Yes: No Distress, Calm Eyes: Yes: Conjunctiva Clear HENT: Yes: Atraumatic Cardiovascular: Yes: Regular Rate and Rhythm Respiratory: Yes: Regular, CTA Bilaterally Gastrointestinal: Yes: Normal Bowel Sounds, Soft Musculoskeletal: Yes: WNL Extremities: Yes: WNL Edema: No Neurological: Yes: Alert, Oriented Psychiatric: Yes: Alert, Oriented Labs: CBC, BMP 08/14/19 07:00 08/14/19 07:00 Discharge Summary Problems reviewed: Yes Reason For Visit: ACUTE PYELONEPHRITIS Current Active Problems Abdominal pain (Acute) Acute pyelonephritis (Acute) Hospital Course: 39-year-old female history of recent UTI was started on Macrobid 2 weeks ago which she completed 1 week ago. 2 days prior she started having recurrent symptoms of dysuria urgency and pain after urination she was having subjective fevers and chills she did see a doctor on Tuesday was given an antibiotic however on the evening prior patient started having worsening pain including left flank pain which is now migrated to the right side flank pain nausea and vomiting. Patient was started on IV antibiotic therapy with good response. She remained afebrile and no leukocytosis and was switched to oral antibiotics. Condition: Stable - Instructions Diet, Activity, Other Instructions: follow up with PMD in 1 week continue with antibiotic as prescribed return to ER if develop chest pain, respiratory distress, blood in urine Referrals: ON STAFF,NOT [Primary Care Provider] - Malinda Juárez MD [Staff Physician] - Disposition: HOME - Home Medications Comprehensive Discharge Medication List: Ambulatory Orders Cephalexin [Keflex] 500 mg PO QID #28 capsule 08/14/19 Ibuprofen [Motrin -] 600 mg PO Q6H PRN #45 tablet 08/14/19
--- NOTE | 2019-08-14 15:24 | PN ---
Progress Note, Physician History of Present Illness: AWAKE,ALERT C/O OCCASIONAL MILD R LOW BACK PAIN NO C/O DYSURIA NO F/C BC (-) URINE C/S E COLI - Current Medication List Current Medications: Active Medications Acetaminophen (Tylenol -) 650 mg PO Q4H PRN PRN Reason: PAIN LEVEL 1-3 Last Admin: 08/14/19 13:09 Dose: 650 mg Heparin Sodium (Porcine) (Heparin -) 5,000 unit SQ BID APPLE Last Admin: 08/14/19 09:34 Dose: 5,000 unit Ceftriaxone Sodium 2 gm/ (Dextrose) 100 mls @ 200 mls/hr IVPB DAILY APPLE; Protocol Last Admin: 08/14/19 09:34 Dose: 200 mls/hr Ibuprofen (Motrin -) 600 mg PO Q6H PRN PRN Reason: PAIN LEVEL 4 - 6 Last Admin: 08/14/19 14:44 Dose: 600 mg - Objective Vital Signs: Vital Signs Temperature 98.0 F 08/14/19 13:54 Pulse Rate 59 L 08/14/19 13:54 Respiratory Rate 18 08/14/19 05:38 Blood Pressure 112/66 08/14/19 13:54 O2 Sat by Pulse Oximetry (%) 98 08/13/19 21:00 Constitutional: Yes: No Distress Eyes: Yes: Conjunctiva Clear Cardiovascular: Yes: Regular Rate and Rhythm, S1, S2 Respiratory: Yes: CTA Bilaterally Gastrointestinal: Yes: Normal Bowel Sounds, Soft. No: Tenderness Genitourinary: Yes: CVA Tenderness - Right. No: CVA Tenderness - Left Labs: CBC, BMP 08/14/19 07:00 08/14/19 07:00 Assessment/Plan UTI PROBABLE PYELO E COLI SUBSTITUTE PO KEFLEX 500MG Q6H X7D
== END 2019-08-14 15:30 | disposition home or self-care (01) | DRG 463 ==
LOC: JER 03:46 → JERBED 10:22 → J6S 18:18
PROVIDERS: ADMIT Family Medicine; ATTEND Family Medicine
DX: N10 Acute pyelonephritis (principal); B96.20 Unspecified Escherichia coli [E. coli] as the cause of diseases classified elsewhere; N39.0 Urinary tract infection, site not specified
CPT/HCPCS: 36415; 74177-TC; 80053; 81003; 83690; 84703; 85025; 85027; 87040; 87086; 87186; 99284-25; J0131; J1644; J7030

== ENCOUNTER 2020-07-09 16:10 | Inpatient (IN) | payer OTHER ==
--- NOTE | 2020-07-09 17:39 | HP ---
Past Medical History - Admission Limitations to Obtaining History: No Limitations - Past Medical History Renal/: Yes: Other ...: 3 ...Para: 0 ...Spon : 1 ... Weeks Gestation by Dates: 39 ...EDC by Dates: 07/13/20 - Past Surgical History Past Surgical History: Yes: None Hx Myomectomy: No Hx Transabdominal Cerclage: No - Smoking History Smoking history: Never smoked Have you smoked in the past 12 months: No - Alcohol/Substance Use Hx Alcohol Use: No - Social History History of Recent Travel: No Home Medications - Allergies Allergies/Adverse Reactions: Allergies Allergy/AdvReac Type Severity Reaction Status Date / Time amoxicillin AdvReac Vomiting Verified 03/15/20 20:56 - Home Medications Home Medications: Ambulatory Orders Pnv No.95/Ferrous Fum/Folic AC [ Vitamin Tablet] 1 each PO DAILY 02/27/20 Cephalexin Monohydrate [Keflex -] 500 mg PO BID 5 Days #10 capsule 03/15/20
--- NOTE | 2020-07-09 17:49 | PN ---
Progress Note (short form) - Note Progress Note: 40 y old p0 admited at 39+3 weeks gestation EDC 07/13 . with Macrosomia EFW 07/05 5036 GM . obese BMI 30 + . Abnormal GCT , GTT with abnormal 3 hr , 3rd hour 150,s , Ihr 179 . + FM , No bleeding < NO ROM . C/O of CTXsince pm 07/08 . CVX 1-2cm / soft /-3/intact ./cephalic . FHR 140, s Mod. variability Mild irregular CTx Due to Macrosomia , will preceed with Cessarian section , prorocedure explained risk and benefit explained , consent obtained , witness via intepreter .
[2020-07-09 17:53] LABS: BASO % 0.6 % (0-2.0); EOS % 0.1 % (0-4.5); HEMATOCRIT 37.6 % (32.4-45.2); HEMOGLOBIN 12.7 GM/dL (10.7-15.3); LYMPH % 20.8 % (8-40); MCHC 33.9 g/dl (32.0-36.0); MEAN CELL VOLUME 91.3 fl (80-96); MONO % 6.5 % (3.8-10.2); RBC 4.12 M/mm3 (3.60-5.2); WHITE BLOOD COUNT 9.8 K/mm3 (4.0-10.0)
[2020-07-09 18:04] LABS: INR 0.88 (0.83-1.09); PROTHROMBIN TIME (PATIENT) 10.4 SEC (9.7-13.0)
[2020-07-09 18:07] LABS: ACTIVATED PTT 22.6 SECONDS (25.2-36.5)
[2020-07-09 18:08] LABS: BLOOD UREA NITROGEN 8.3 mg/dL (7-18); CALCIUM 9.2 mg/dL (8.5-10.1); CREATININE 0.4 mg/dL (0.55-1.3); POTASSIUM 4.1 mmol/L (3.5-5.1)
[2020-07-09 18:10] LABS: PLATELET COUNT 140 K/MM3 (134-434)
[2020-07-09 18:11] LABS: PLATELET ESTIMATE DECREASED
[2020-07-09 18:15] VITALS: BMI 39.7
[2020-07-09] MEDS ORDERED: CITRIC ACID/SODIUM CITRATE 30 ML UNIT-DOSE CUP PO ONE (18:20)
[2020-07-09] MEDS ORDERED: OXYTOCIN 20 UNITS in 0.9% NS 20 UNIT/1,000 ML INFUS.BAG IV ONE (18:23)
[2020-07-09] MEDS ORDERED: ELECTROLYTE-148 SOLN 1,000 ML IV SCH (18:30)
[2020-07-09] MEDS ORDERED: ONDANSETRON 4 MG/2 ML VIAL IVPUSH PRN (19:48)
--- NOTE | 2020-07-09 20:21 | OP ---
Operative Note - Note: Operative Date: 07/09/20 Pre-Operative Diagnosis: Macrosomia at 39+3 weeks gestation Operation: primary lower transvere C/S Findings: full term male nfant in ROT position 9/9 at 1 and 5 min ovary and tubes grossely NL . placenta intact , delivered omplete and spont. Post-Operative Diagnosis: Same as Pre-op Surgeon: Ramon Reynoso Anesthesia: Spinal Estimated Blood Loss (mls): 700 Drains, Volume Out (mls): 100 Operative Report Dictated: Yes
[2020-07-09 20:36] LABS: CORD BASE EXCESS -2.1 mmol/L (0-2); CORD HCO3 24.9 mmHg (20-29); CORD PCO2 50.4 mmHg (30-78); CORD pH 7.312 (7.14-7.44)
[2020-07-09 20:42] LABS: CORD pH 7.184 (7.14-7.44)
[2020-07-09 20:43] LABS: CORD HCO3 24.4 mmHg (20-29); CORD PCO2 66.3 mmHg (30-78)
[2020-07-09] MEDS ORDERED: OXYTOCIN 20 UNITS in 0.9% NS 1000 ML INFUS.BAG IV ONE (21:05)
--- NOTE | 2020-07-09 23:11 | OP ---
DATE OF OPERATION: 07/09/2020 PROCEDURE: Primary low transverse section. INDICATION: Preoperatively, the patient is 40 years old, 1, para 0, with history of abnormal GTT, history of obesity, with GTT shows 1 abnormality. Obese, BMI over 30. Admitted at 39 plus 3 days after sonogram July 05 revealed macrosomia with estimated weight 5036 g, with patient complaining of contractions since July 08. The exam was 1-2 cm, soft, moderate contractions noted, heart rate 140s, with good moderate variability. Due to macrosomia, obesity, and abnormal GTT, the decision was made after discussion with the patient to proceed with primary low transverse section. Procedure explained. Risks and benefits explained. Risks of possible bleeding, infection, injury to the bowel or other pelvic or abdominal organs discussed with the patient. Patient agreed and signed consent, witnessed and through maid cleaning cooking. SURGEON: Ramon Reynoso MD. PUBLICIST: ALEKSANDR Barba. COMPLICATIONS: None. ANESTHESIA: Spinal anesthesia was given. ESTIMATED BLOOD LOSS: 700 mL. INTRAVENOUS FLUIDS: Patient received IV fluids, 1500 mL lactated Ringer's intraoperatively. DESCRIPTION OF PROCEDURE: Patient was taken to the operating room under spinal anesthesia in dorsal lithotomy position, skin Pfannenstiel incision was made with scalpel, carried to underlying layer of fascia. Fascia was incised and extended bilaterally using Espino scissors. The fascia was from underlying layer of muscle using Espino scissors. The muscle and the peritoneum were entered bluntly. Following the low transverse segment was identified. Uterovesical peritoneum was incised and dissected bilaterally using Metzenbaum. Lower transverse segment was incised, and membrane was ruptured. The lower uterine segment was extended bilaterally, bluntly. The head was clear fluid. The head was delivered atraumatically shoulder, posterior shoulder, the whole body. Suction of mouth and nose were done. The cord was clamped, cut, and the was handed to the waiting restaurant kitchen and service manager with Apgars 9 and 9 at one and five minutes. The positioned during the delivery was right occipital transverse. Cord gas was obtained. Cord blood was obtained. Placenta was delivered complete, intact, spontaneous. The uterus was cleared from all debris and bleeding. Lower uterine segment was closed using number 1 Vicryl in locked position, locked fashion x2 layers. Good hemostasis was obtained. The gutter on the pelvis was cleaned from all debris and the bleeding. The fascia was closed in a continuous fashion using number 1 Vicryl, subcutaneous was closed using interrupted 2-0 plain. The skin was closed using bhavani. Patient tolerated the procedure well and transferred to recovery room in stable condition. RAMON REYNOSO MD [id number]
[2020-07-09] MEDS: IBUPROFEN 600 MG TABLET (FP) PO PRN (23:16)
[2020-07-09] MEDS: ACETAMINOPHEN 325 MG TABLET (FP) PO PRN (23:17)
[2020-07-10] MEDS: ACETAMINOPHEN 325 MG TABLET (FP) PO PRN ×3 (05:52→17:48)
[2020-07-10] MEDS: IBUPROFEN 600 MG TABLET (FP) PO PRN ×3 (05:53→17:49)
[2020-07-10 08:29] LABS: BASO % 0.2 % (0-2.0); EOS % 0.1 % (0-4.5); HEMATOCRIT 31.9 % (32.4-45.2); HEMOGLOBIN 10.6 GM/dL (10.7-15.3); LYMPH % 10.3 % (8-40); MCH 29.9 pg (25.7-33.7); MEAN CELL VOLUME 90.6 fl (80-96); MEAN PLT VOLUME 11.1 fl (7.5-11.1); MONO % 6.9 % (3.8-10.2); NEUT % 82.5 % (42.8-82.8); PLATELET COUNT 118 K/MM3 (134-434); RBC 3.53 M/mm3 (3.60-5.2); RDW 13.9 % (11.6-15.6); WHITE BLOOD COUNT 12.5 K/mm3 (4.0-10.0)
[2020-07-10] MEDS ORDERED: diphenhydrAMINE HCL 25 MG CAPSULE (FP) PO PRN (10:40)
[2020-07-10] MEDS ORDERED: OXYTOCIN 20 UNITS in 0.9% NS 20 UNIT/1,000 ML INFUS.BAG IV ONE (10:45)
[2020-07-10] MEDS: oxyCODONE HCL 5 MG TABLET PO PRN ×2 (15:01→20:08)
[2020-07-10] MEDS: SIMETHICONE 80 MG TAB.CHEW (FP) PO PRN ×2 (15:02→20:08)
--- NOTE | 2020-07-10 20:22 | PN ---
Progress Note (short form) - Note Progress Note: POD#1 Patient seen and examined at bed side, doing well, Afebrial, complaining of occasional wound pain relived by medication, patient ambulating, voiding, passed flatus. PE: AO X3 in NAD HEENT: NC/AT, Supple Chest: CTA BL ABDOMEN : Soft, appropriately tender at wound site, +ve BS Wound: D/C/I , bhavani in place, no signs of infection or inflammation EXT: negative Shraddha's BL Vagina: Normal Lochia PP labs 12.5>10.6/31.9<118 A/P POD#1 S/P doing well Ambulating, voiding, passed flatus. Encourage ambulation Pain medication PRN Asymptomatic anemia Patient declined Baby Circumcision Will DC home tomorrow ifb Continue to be stable. [facility] for wound check and Staple removal in one week. Problem List - Problems (1) Problems reviewed: Yes Code(s): Z34.90 - ENCNTR FOR SUPRVSN OF NORMAL , UNSP, UNSP TRIMESTER Qualifiers: Weeks of gestation: 22 weeks Qualified Code(s): Z3A.22 - 22 weeks gestation of
--- NOTE | 2020-07-10 20:28 | DS ---
Physical Exam-MESMERIST Vital Signs: Vital Signs Temperature 98.0 F 07/10/20 20:12 Pulse Rate 74 07/10/20 20:12 Respiratory Rate 20 07/10/20 20:13 Blood Pressure 118/70 07/10/20 20:12 O2 Sat by Pulse Oximetry (%) 97 07/10/20 18:41 Vaginal Exam: Yes: Other Uterus: Yes: Firm ....Post : Yes: Uterus firm, Uterus non-tender, Slight lochia rubra (POD#1 Patient seen and examined at bed side, doing well, Afebrial, complaining of occasional wound pain relived by medication, patient ambulating, voiding, passed flatus. PE: AO X3 in NAD HEENT: NC/AT, Supple Chest: CTA BL ABDOMEN : Soft, appropriately tender at wound site, +ve BS Wound: D/C/I , bhavani in place, no signs of infection or inflammation EXT: negative Shraddha's BL Vagina: Normal Lochi a PP labs 12.5>10.6/31.9<118 A/P POD#1 S/P doing well Ambulating, voiding, passed flatus. Encourage ambulation Pain medication PRN Asymptomatic anemia Patient declined Baby Circumcision Will DC home tomorrow ifb Continue to be stable. 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
--- NOTE | 2020-07-10 20:29 | DS ---
Physical Examination Vital Signs: Vital Signs Temperature 98.0 F 07/10/20 20:12 Pulse Rate 74 07/10/20 20:12 Respiratory Rate 20 07/10/20 20:13 Blood Pressure 118/70 07/10/20 20:12 O2 Sat by Pulse Oximetry (%) 97 07/10/20 18:41 Labs: CBC, BMP 07/10/20 07:43 07/09/20 17:15 Discharge Summary Problems reviewed: Yes Reason For Visit: C SECTION - Instructions Diet, Activity, Other Instructions: Regular diet No Driving for 6 weeks - Home Medications Comprehensive Discharge Medication List: Ambulatory Orders Pnv No.95/Ferrous Fum/Folic AC [ Vitamin Tablet] 1 each PO DAILY 02/27/20 Cephalexin Monohydrate [Keflex -] 500 mg PO BID 5 Days #10 capsule 03/15/20
[2020-07-10] MEDS ORDERED: BISACODYL 10 MG SUPP.RECT PR PRN (20:33)
[2020-07-11] MEDS: SENNOSIDES 8.6MG TABLET (FP) PO SCH ×2 (00:12→09:16)
[2020-07-11] MEDS: IBUPROFEN 600 MG TABLET (FP) PO PRN ×5 (00:12→20:21)
[2020-07-11] MEDS: ACETAMINOPHEN 325 MG TABLET (FP) PO PRN ×5 (00:12→20:19)
[2020-07-11] MEDS: oxyCODONE HCL 5 MG TABLET PO PRN ×5 (00:13→20:20)
[2020-07-11] MEDS: SIMETHICONE 80 MG TAB.CHEW (FP) PO PRN ×3 (03:55→20:22)
--- NOTE | 2020-07-11 06:41 | PN ---
Progress Note (short form) - Note Progress Note: POD#2 Patient seen and examined at bed side, doing well, Afebrial, complaining of occasional wound pain relived by medication, patient ambulating, voiding, passed flatus. PE: AO X3 in NAD HEENT: NC/AT, Supple Chest: CTA BL ABDOMEN : Soft, appropriately tender at wound site, +ve BS Wound: D/C/I , bhavani in place, no signs of infection or inflammation EXT: negative Shraddha's BL Vagina: Normal Lochia PP labs 12.5>10.6/31.9<118 A/P POD#2 S/P doing well Ambulating, voiding, passed flatus. Encourage ambulation Pain medication PRN Asymptomatic anemia Patient declined Baby Circumcision Will DC home tomorrow if Continue to be stable. F/U in [facility] for wound check and Staple removal in one week. Problem List - Problems (1) Code(s): Z34.90 - ENCNTR FOR SUPRVSN OF NORMAL , UNSP, UNSP TRIMESTER Qualifiers: Weeks of gestation: 22 weeks Qualified Code(s): Z3A.22 - 22 weeks gestation of
[2020-07-11 08:22] LABS: BASO % 0.2 % (0-2.0); EOS % 0.5 % (0-4.5); HEMATOCRIT 28.7 % (32.4-45.2); HEMOGLOBIN 9.4 GM/dL (10.7-15.3); LYMPH % 16.3 % (8-40); MCHC 32.7 g/dl (32.0-36.0); MEAN CELL VOLUME 91.7 fl (80-96); MEAN PLT VOLUME 10.7 fl (7.5-11.1); MONO % 5.5 % (3.8-10.2); NEUT % 77.5 % (42.8-82.8); PLATELET COUNT 109 K/MM3 (134-434); RBC 3.13 M/mm3 (3.60-5.2); RDW 14.3 % (11.6-15.6); WHITE BLOOD COUNT 11.8 K/mm3 (4.0-10.0)
[2020-07-11 21:23] VITALS: TEMP 97.7
[2020-07-12] MEDS: SENNOSIDES 8.6MG TABLET (FP) PO SCH ×2 (00:08→09:42)
[2020-07-12] MEDS: ACETAMINOPHEN 325 MG TABLET (FP) PO PRN ×3 (01:26→13:09)
[2020-07-12] MEDS: oxyCODONE HCL 5 MG TABLET PO PRN ×2 (01:27→09:49)
[2020-07-12] MEDS: IBUPROFEN 600 MG TABLET (FP) PO PRN ×3 (01:27→13:09)
--- NOTE | 2020-07-12 07:39 | PN ---
Progress Note (short form) - Note Progress Note: POD#3 Patient seen and examined at bed side, doing well, Afebrial, complaining of occasional wound pain relived by medication, Patient was complaining of right side chest discomfort radiating to right shoulder relived with pain meds, patient ambulating, voiding, passed flatus. PE: AO X3 in NAD HEENT: NC/AT, Supple Chest: CTA BL ABDOMEN : Soft, appropriately tender at wound site, +ve BS Wound: D/C/I , bhavani in place, no signs of infection or inflammation EXT: negative Shraddha's BL Vagina: Normal Lochia PP labs 12.5>10.6/31.9<118 A/P POD#3 S/P doing well CXR done no aparent abnormality, likely muscloskletel pain Ambulating, voiding, passed flatus. Encourage ambulation Pain medication PRN Asymptomatic anemia Patient declined Baby Circumcision Baby transferred out to [facility]. Patient if Continue to be stable. Will DC home today. F/U in [facility] for wound check and Staple removal in one week. Problem List - Problems (1) Code(s): Z34.90 - ENCNTR FOR SUPRVSN OF NORMAL , UNSP, UNSP TRIMESTER Qualifiers: Weeks of gestation: 22 weeks Qualified Code(s): Z3A.22 - 22 weeks gestation of
[2020-07-12] MEDS: SIMETHICONE 80 MG TAB.CHEW (FP) PO PRN (09:45)
[2020-07-12 10:23] VITALS: BP 111/71; PULSE 72
--- NOTE | 2020-07-16 17:40 | PATH ---
Surgical Pathology Report Patient Name: LAXMI WARREN Med. Rec. 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 Electronically Signed Carline Terrazas M.D. Gross Description The specimen is received fresh labeled placenta and is a 542 gram, 17.0 x 15.0 x 3.7 cm. placenta with attached membranes and umbilical cord. The attached membranes are josé, translucent with focal opacities and insert marginally. The umbilical cord measures 35 cm. in length and averages 1 cm. in diameter. The cord inserts eccentrically, 3.5 cm. to the nearest margin. No true knots or strictures are identified. Cut surface of the umbilical cord reveals 3 vessels. The surface is mays-blue with minimal fibrin deposition and appropriate caliber vessels. The maternal surface is red-brown with focal defects. Sectioning reveals red-brown, spongy parenchyma. No lesions are identified. Medical Care Evaluation Specialist sections are submitted in three cassettes as follows: 1- membrane rolls and umbilical cord; 2-3- full thickness sections of placenta. 07/11/2020 [facility]07/11/2020
== END 2020-07-12 01:10 | disposition home or self-care (01) | DRG 540 ==
LOC: JLDR 16:10 → J3W 21:10
PROVIDERS: ADMIT Family Medicine; ATTEND Family Medicine
PROC: 10D00Z1 Extraction of Products of Conception, Low, Open Approach (ICD-10-PCS; principal; 2020-07-09)
DX: O82 Encounter for cesarean delivery without indication (principal); O36.63X0 Maternal care for excessive fetal growth, third trimester, not applicable or unspecified; Z3A.39 39 weeks gestation of pregnancy; Z37.0 Single live birth; O99.214 Obesity complicating childbirth; E66.9 Obesity, unspecified; O99.810 Abnormal glucose complicating pregnancy
CPT/HCPCS: 36415; 36600; 71046-TC-FY; 80048; 82803; 85025; 85610; 85730; 86780; 86850; 86900; 86901; 88307-TC; U0003

== ENCOUNTER 2020-07-17 20:36 | Emergency (ER) | payer OTHER ==
[2020-07-17 20:43] VITALS: BP 138/55; PULSE 63; TEMP 98.5; BMI 29.1
[2020-07-17] MEDS ORDERED: ACETAMINOPHEN/CAFFEINE/BUTALBITAL 1 TAB PO ONE (22:03)
[2020-07-17] MEDS ORDERED: ACETAMINOPHEN/CAFFEINE/BUTALBITAL 1 TAB ONE (22:10)
--- NOTE | 2020-07-17 22:16 | PDOC ---
History of Present Illness - General Chief Complaint: Headache Stated Complaint: PAIN/HEAD Time Seen by Provider: 07/17/20 21:00 History Source: Patient Exam Limitations: Clinical Condition - History of Present Illness Initial Comments: 07/17/20 22:10 Patient with with no significant past medical history and 1 week C- section presented with complaint of headache which she described as pressure in the back of the head going down the neck since this morning. Patient report baby has been admitted to [facility] postdelivery for complication and patient has been spending every day in the hospital and has not been getting much sleep. Patient report has been having a lot of stress in the past few days. Patient report taking Tylenol for headache with minimal improvement. Denies nausea, vomiting, dizziness, blurry vision, change in vision, chest pain, shortness of breath. Denies any other symptoms. Patient report calling OB this morning about symptoms and was advised by OB to come to the ER if persistent symptoms. Denies slurred speech, excessive sleepiness, lightheadedness. Timing/Duration: reports: episodic Severity: Yes: mild Associated Symptoms: denies: fever/chills, nausea/vomiting, paresthesia, slurred speech, weakness Past History - Medical History Allergies/Adverse Reactions: Allergies Allergy/AdvReac Type Severity Reaction Status Date / Time amoxicillin AdvReac Vomiting Verified 03/15/20 20:56 Home Medications: Ambulatory Orders Pnv No.95/Ferrous Fum/Folic AC [ Vitamin Tablet] 1 each PO DAILY 02/27/20 Cephalexin Monohydrate [Keflex -] 500 mg PO BID 5 Days #10 capsule 03/15/20 Butalb/Acetaminophen/Caffeine [Fioricet 50-300-40 mg Capsule] 1 each PO Q6H PRN #12 capsule 07/17/20 Asthma: No Cancer: No Cardiac Disorders: No COPD: No Diabetes: No HTN: No Seizures: No Thyroid Disease: No - Reproductive History Is Patient Now?: No (#): 2 Para: 0 Spontaneous : 1 - Immunization History Immunization Up to Date: Yes - Psycho-Social/Smoking History Smoking History: Never smoked Have you smoked in the past 12 months: No - Substance Abuse Hx (Audit-C & DAST Scrn) How often the patient has a drink containing alcohol: Never Score: In Men: 4 or > Positive; In Women: 3 or > Positive: 0 Screen Result (Pos requires Nsg. Audit-10AR): Negative In the last yr the pt used illegal drug/Rx for NonMed reason: No Score: Yes response is considered Positive: 0 Screen Result (Positive result requires Nsg. DAST-10): Negative Review of Systems - Review of Systems Able to Perform ROS?: Yes Is the patient limited Kiswahili proficient: No Constitutional: No: Chills, Fever, Malaise HEENTM: No: Symptoms Reported, See HPI, Eye Pain, Blurred Vision, Tearing, Recent change in vision, Double Vision, Cataracts, Ear Pain, Ocular Prothesis, Ear Discharge, Nose Pain, Nose Congestion, Tinnitus, Nose Bleeding, Hearing Loss, Throat Pain, Throat Swelling, Mouth Pain, Dental Problems, Difficulty Swallowing, Mouth Swelling, Other Respiratory: No: Symptoms reported, See HPI, Cough, Orthopnea, Shortness of Breath, SOB with Exertion, SOB at Rest, Stridor, Wheezing, Productive cough, Hemoptysis, Other Cardiac (ROS): No: Symptoms Reported, See HPI, Chest Pain, Edema, Irregular Heart Rate, Lightheadedness, Palpitations, Syncope, Chest Tightness, Other ABD/GI: No: Symptoms Reported, Nausea, Vomiting Musculoskeletal: No: Symptoms Reported Integumentary: No: Symptoms Reported Neurological: Yes: Symptoms reported, See HPI, Headache. No: Numbness, Paresthesia, Pre-Existing Deficit, Weakness, Unsteady Gait, Dizziness All Other Systems: Reviewed and Negative *Physical Exam - Vital Signs Last Vital Signs Temp Pulse Resp BP Pulse Ox 98.5 F 63 19 138/55 L 99 07/17/20 20:40 07/17/20 20:40 07/17/20 20:40 07/17/20 20:40 07/17/20 20:40 - Physical Exam 07/17/20 22:13 GENERAL: Well developed, well nourished. Awake and alert. No acute distress. HEENT: Normocephalic, atraumatic. PERRLA, EOMI. No conjunctival pallor. Sclera are non- icteric. Moist mucous membranes. Oropharynx is clear. NECK: Supple. Full ROM. CARDIOVASCULAR: Regular rate and rhythm. No murmurs, rubs, or gallops. Distal pulses are 2+ and symmetric. PULMONARY: No evidence of respiratory distress. Lungs clear to auscultation bilaterally. No wheezing, rales or rhonchi. MUSCULOSKELETAL Normal range of motion at all joints. No bony deformities or tenderness. No calf muscles tenderness. SKIN: Warm and dry. Normal capillary refill. No cyanosis. No jaundice. NEUROLOGICAL: Alert, awake, appropriate. Cranial nerves 2-12 intact. No deficits to light touch in face, upper extremities and lower extremities. No motor deficits in the in face, upper extremities and lower extremities. Normoreflexic in the upper and lower extremities. Normal speech. Gait is normal without ataxia. PSYCHIATRIC: Cooperative. Good eye contact. Appropriate mood and affect. General Appearance: Yes: Nourished, Appropriately Dressed. No: Apparent Distress Medical Decision Making - Medical Decision Making 07/17/20 22:12 Patient with with no significant past medical history and 1 week C- section presented with complaint of headache which she described as pressure in the back of the head going down the neck since this morning. Patient report baby has been admitted to [facility] postdelivery for complication and patient has been spending every day in the hospital and has not been getting much sleep. Patient report has been having a lot of stress in the past few d ays. Patient report taking Tylenol for headache with minimal improvement. Denies nausea, vomiting, dizziness, blurry vision, change in vision, chest pain, shortness of breath. Denies any other symptoms. Patient report calling OB this morning about symptoms and was advised by OB to come to the ER if persistent symptoms. Denies slurred speech, excessive sleepiness, lightheadedness. Clinical exam unremarkable with normal neuro exam. Patient walking with normal gait without support. Patient talking in full sentences in no acute distress. Patient symptoms likely tension headache from stress. UA ordered to rule out proteinuria to rule out preeclampsia. Normal vital signs. Fioricet 1 tab given for headache. Patient advised to rest the room for half an hour and reassess 07/17/20 23:02 UA shows no proteinuria or ketones in urine. Patient reports significant improvement with Fioricet. Patient symptoms likely tension headache and stable for discharge on Fioricet PRN for headache with advised to get some rest and follow-up with PCP. Patient left department without complication with normal gait Discharge - Discharge Information Problems reviewed: Yes Clinical Impression/Diagnosis: Tension headache Condition: Stable Disposition: HOME - Admission No - Additional Discharge Information Prescriptions: Butalb/Acetaminophen/Caffeine [Fioricet 50-300-40 mg Capsule] 1 each PO Q6H PRN #12 capsule PRN Reason: headache - Follow up/Referral Referrals: Tello Medrano MD [Staff Physician] - - Patient Discharge Instructions Patient Printed Discharge Instructions: Tension Headache Additional Instructions: Your urine was normal and shows no protein or ketones in the urine. Your headache is likely caused by tension headache from stress. Take prescribed medication as needed for headache. Rest and do relaxation exercise to help with headaches. Follow-up referred to neurologist if symptoms persist for more than 3 days otherwise follow-up with your primary care Print Language: PERSIAN - Post Discharge Activity
[2020-07-17 22:26] LABS: EPI CELLS 15 /uL (0-25.1); HYALINE CASTS 1 /uL (0-3.1); PH,URINE 6.5 (5.0-8.0); URINE APPEARANCE CLEAR; URINE BACTERIA 40 /uL (0-1359); URINE BILIRUBIN NEGATIVE (NEGATIVE); URINE COLOR YELLOW; URINE GLUCOSE (UA) NEGATIVE (NEGATIVE); URINE KETONE NEGATIVE (NEGATIVE); URINE LEUK ESTERASE TRACE (NEGATIVE); URINE NITRITE NEGATIVE (NEGATIVE); URINE PROTEIN NEGATIVE (NEGATIVE); URINE RBC 13 /uL (0-23.9); URINE UROBILINOGEN 0.2 mg/dL (0.2-1.0); URINE WBC 11 /uL (0-25.8)
== END 2020-07-17 23:03 | disposition home or self-care (01) ==
LOC: JER 20:36 → JERFT 20:36
DX: G44.209 Tension-type headache, unspecified, not intractable (principal)
CPT/HCPCS: 81003; 99283-25

== ENCOUNTER 2022-09-20 11:06 | Emergency (ER) | payer OTHER ==
[2022-09-20 11:47] VITALS: BP 103/64; PULSE 74; RESP 18; TEMP 98.5; BMI 29.9
[2022-09-20] MEDS ORDERED: ACETAMINOPHEN 500 MG TABLET (FP) PO ONE (14:14)
[2022-09-20] MEDS ORDERED: ACETAMINOPHEN 325 MG TABLET (FP) ONE (14:31)
== END 2022-09-20 16:25 | disposition home or self-care (01) ==
LOC: JERFT 11:06
DX: S83.92XA Sprain of unspecified site of left knee, initial encounter (principal); X50.0XXA Overexertion from strenuous movement or load, initial encounter
CPT/HCPCS: 73564-TC-LT-FY; 99283-25

== ENCOUNTER 2024-10-13 16:28 | Emergency (ER) | payer OTHER ==
[2024-10-13 16:35] VITALS: BP 127/83; RESP 16; TEMP 99.4; BMI 28.3
[2024-10-13] MEDS ORDERED: ONDANSETRON *ODT* 4 MG TABLET ONE (17:48)
[2024-10-13] MEDS: ONDANSETRON *ODT* 4 MG TABLET SL ONE (17:55)
[2024-10-13] MEDS: SODIUM CHLORIDE 0.9% 500 ML INFUS.BAG IV ONE (18:05)
[2024-10-13 18:15] LABS: BASO % 0.2 % (0-2.0); HEMATOCRIT 42.3 % (32.4-45.2); HEMOGLOBIN 14.1 GM/dL (10.7-15.3); LYMPH % 8.9 % (8-40); MCH 29.4 pg (25.7-33.7); MCHC 33.2 g/dl (32.0-36.0); MEAN CELL VOLUME 88.4 fl (80-96); MEAN PLT VOLUME 8.8 fl (7.5-11.1); NEUT % 88.9 % (42.8-82.8); PLATELET COUNT 272 10^3/uL (134-434); RBC 4.79 M/mm3 (3.60-5.2); WHITE BLOOD COUNT 9.5 K/mm3 (4.0-10.0)
[2024-10-13 18:37] LABS: POTASSIUM 3.6 mmol/L (3.5-5.1)
[2024-10-13 18:39] LABS: ALBUMIN 3.8 g/dl (3.4-5.0)
[2024-10-13 18:42] LABS: CREATININE 0.6 mg/dL (0.55-1.3)
[2024-10-13 18:44] LABS: BILIRUBIN,TOTAL 0.6 mg/dL (0.2-1); TOT PROT 7.4 g/dl (6.4-8.2)
[2024-10-13] MEDS ORDERED: ACETAMINOPHEN INJECTION 100 ML ONE (18:45)
[2024-10-13] MEDS: ACETAMINOPHEN 1000 MG/100 ML BAG IVPB ONE (18:50)
[2024-10-13] MEDS ORDERED: FAMOTIDINE 20 MG/50 ML IVPB 20 MG/50 ML MG IVPB ONE (19:10)
[2024-10-13] MEDS: FAMOTIDINE 20 MG/50 ML IVPB 20 MG/50 ML MG IVPB ONE (19:12)
[2024-10-13 19:21] VITALS: PULSE 91
== END 2024-10-13 19:51 | disposition home or self-care (01) ==
LOC: JER 16:28
PROC: 3E033GC Introduction of Other Therapeutic Substance into Peripheral Vein, Percutaneous Approach (ICD-10-PCS; principal; 2024-10-13)
PROC: 3E033NZ Introduction of Analgesics, Hypnotics, Sedatives into Peripheral Vein, Percutaneous Approach (ICD-10-PCS; 2024-10-13)
DX: R11.2 Nausea with vomiting, unspecified (principal); R19.7 Diarrhea, unspecified; R10.13 Epigastric pain; Z20.822 Contact with and (suspected) exposure to COVID-19
CPT/HCPCS: 0241U-QW; 36415; 80053; 83690; 83735; 84703; 85025; 99284-25; J0131; Q0162

== ENCOUNTER 2025-02-07 01:26 | Emergency (ER) | payer OTHER ==
[2025-02-07 01:29] VITALS: BP 130/83; PULSE 68; RESP 18; TEMP 98.1; BMI 27.1
[2025-02-07 03:35] LABS: HEMATOCRIT 37.9 % (34.1-44.9); HEMOGLOBIN 12.7 g/dL (11.2-15.7); MCHC 33.5 g/dl (32.2-35.5); MEAN PLT VOLUME 10.8 fl (9.4-12.3); PLATELET COUNT 231 x10^3/uL (182-369); RDW 12.3 % (12.2-17.1)
[2025-02-07 03:53] LABS: INR 0.97 (0.83-1.09); PROTHROMBIN TIME (PATIENT) 10.7 SEC (9.7-13.0)
[2025-02-07 03:56] LABS: ACTIVATED PTT 27.4 SECONDS (25.2-36.5); ALBUMIN 3.5 g/dl (3.4-5.0); BLOOD UREA NITROGEN 13.7 mg/dL (7-18); CALCIUM 8.8 mg/dL (8.5-10.1)
[2025-02-07 03:59] LABS: CREATININE 0.6 mg/dL (0.55-1.3)
[2025-02-07 04:01] LABS: BILIRUBIN,TOTAL 0.3 mg/dL (0.2-1); TOT PROT 6.8 g/dl (6.4-8.2)
== END 2025-02-07 05:05 | disposition home or self-care (01) ==
LOC: JER 01:26
DX: R07.9 Chest pain, unspecified (principal)
CPT/HCPCS: 36415; 80053; 82550; 84484; 85027; 85610; 85730; 93005; 93010; 99284-25